=== PATIENT | male | born 1955 | race Caucasian/White ===

== ENCOUNTER 2019-03-31 06:11 | Emergency (ER) | payer OTHER ==
[~2019-03-31] VITALS: Ht 175.3 cm; Wt 119.8 kg
[2019-03-31 06:25] VITALS: BP 200/100
--- NOTE | 2019-03-31 06:25 | NUR ---
PT TAKEN TO BED 8
--- NOTE | 2019-03-31 06:55 | NUR ---
PT ARRVIED TO ED C/O RIGHT LOWER BACK BACK X 4-5DAYS. RATES PAIN 8/10 AND DESCRIBES IT A STABBING FEELING. DENIES ANY INJURY OR TURAMA OR FALLS. VSS SHOWS BP IS 200/109. NO OBVIOUS DEFORMITY NOTED ON PAIN LOCATION. NO SWELLING OR REDNESS NOTED ON RIGHT SIDE OF BACK. NKA. NO PMH.
--- NOTE | 2019-03-31 07:25 | NUR ---
Pt report given to jacey domingo. Transfer of care at this time. Addendum: 03/31/19 at 0801 by [facility] RECEIVED REPORT FROM JOSUÉ ZAMUDIO.
--- NOTE | 2019-03-31 07:38 | NUR ---
Dr. Price is evaluating the patient at bedside.
[2019-03-31] MEDS ORDERED: KETOROLAC 60 MG/2 ML VIAL IM ONE (07:40)
[2019-03-31 08:22] VITALS: BP 168/100
--- NOTE | 2019-03-31 08:22 | NUR ---
Patient discharged with BP 168/100, DENIES FOSS OR DIZZINESS AT THIS TIME, MD MADE AWARE. Written and verbal after care instructions given and explained. Patient alert, oriented and verbalized understanding of instructions. Ambulatory with steady gait. All questions addressed prior to discharge. ID band removed. Patient advised to follow up with PMD. Rx of MOTRIN given. Patient educated on indication of medication including possible reaction and side effects. Opportunity to ask questions provided and answered.
== END 2019-03-31 08:22 | disposition home or self-care (01) ==
LOC: MED 06:11
DX: M54.5 Low back pain (principal); F17.200 Nicotine dependence, unspecified, uncomplicated
CPT/HCPCS: 81002; 96372; 99283; J1885

== ENCOUNTER 2023-06-13 16:00 | Emergency (ER) | payer BC ==
[~2023-06-13] VITALS: Ht 175.3 cm; Wt 127.0 kg
[2023-06-13 16:09] VITALS: BP 152/92; PULSE 85; RESP 16; TEMP 98.4; O2SAT 96
[2023-06-13 17:45] LABS: EOSINOPHILS # (AUTO) 0.1 K/uL (0-0.4); HEMOGLOBIN 10.8 g/dL (12.0-18.0); LYMPHOCYTES # (AUTO) 2.2 K/uL (2.0-11.5); LYMPHOCYTES % (AUTO) 22.6 % (20.5-51.1); MEAN CORPUSCULAR HEMOGLOBIN 29 pg (27-31); MONOCYTES # (AUTO) 0.7 K/uL (0.8-1.0); MONOCYTES % (AUTO) 6.7 % (1.7-9.3); NEUTROPHILS # (AUTO) 6.7 K/uL (1.8-7.7); RED CELL DISTRIBUTION WIDTH 16.8 % (11.6-13.7); WHITE BLOOD COUNT (AUTO) 9.8 K/uL (4.8-10.8)
[2023-06-13 17:47] LABS: ANION GAP 8.8 (8-16); CALCIUM 8.4 mg/dL (8.5-10.1); CARBON DIOXIDE 31.5 mmol/L (21-32); POTASSIUM 3.3 mmol/L (3.5-5.1)
[2023-06-13 17:51] LABS: BASOPHILS # (AUTO) 0.1 K/uL (0.00-0.22); BASOPHILS % (AUTO) 0.8 % (0.0-2.0); EOSINOPHILS % (AUTO) 1.3 % (0.0-4.0); HEMATOCRIT 31.9 % (36-52); MEAN CORPUSCULAR HGB CONC 34 g/dL (33-37); MEAN CORPUSCULAR VOLUME 86.6 fL (80-94); NEUTROPHILS % (AUTO) 68.6 % (42.2-75.2); PLATELET COUNT (AUTO) 150 K/uL (140-450); RED BLOOD CELL COUNT(AUTO) 3.69 MIL/uL (4.20-6.10)
[2023-06-13 18:03] VITALS: O2SAT 96
[2023-06-13] MEDS ORDERED: POTA8TAB19 PO (18:19)
[2023-06-13] MEDS ORDERED: FURO-572 PO (18:19)
[2023-06-13] MEDS: POTASSIUM CHLORIDE 10 MEQ TABER PO ONE (18:31)
[2023-06-13 18:42] VITALS: BP 145/82; PULSE 80; RESP 15; TEMP 98; O2SAT 99
== END 2023-06-13 18:42 | disposition home or self-care (01) ==
LOC: MED 16:00
DX: R60.9 Edema, unspecified (principal); E87.6 Hypokalemia; I12.9 Hypertensive chronic kidney disease with stage 1 through stage 4 chronic kidney disease, or unspecified chronic kidney disease; E11.22 Type 2 diabetes mellitus with diabetic chronic kidney disease; N28.9 Disorder of kidney and ureter, unspecified; Z86.73 Personal history of transient ischemic attack (TIA), and cerebral infarction without residual deficits; Z79.4 Long term (current) use of insulin; Z79.899 Other long term (current) drug therapy
CPT/HCPCS: 36415; 71045; 80048; 83880; 84484; 85025; 93005; 99285

== ENCOUNTER 2023-07-16 14:40 | Emergency (ER) | payer BC ==
[~2023-07-16] VITALS: Ht 175.3 cm; Wt 145.1 kg
[~2023-07-16 14:40] MED LIST: FURO-572 PO; POTA8TAB19 PO
[2023-07-16 14:52] VITALS: BP 138/89; PULSE 79; RESP 18; TEMP 98.6; O2SAT 93
[2023-07-16 15:45] VITALS: PULSE 74; O2SAT 95
[2023-07-16 17:27] LABS: BASOPHILS # (AUTO) 0.1 K/uL (0.00-0.22); EOSINOPHILS # (AUTO) 0.1 K/uL (0-0.4); EOSINOPHILS % (AUTO) 1.7 % (0.0-4.0); HEMATOCRIT 32.5 % (36-52); HEMOGLOBIN 10.8 g/dL (12.0-18.0); LYMPHOCYTES # (AUTO) 2.1 K/uL (2.0-11.5); LYMPHOCYTES % (AUTO) 24.8 % (20.5-51.1); MEAN CORPUSCULAR HEMOGLOBIN 29 pg (27-31); MEAN CORPUSCULAR HGB CONC 33 g/dL (33-37); MEAN CORPUSCULAR VOLUME 88.3 fL (80-94); MONOCYTES # (AUTO) 0.5 K/uL (0.8-1.0); MONOCYTES % (AUTO) 5.7 % (1.7-9.3); NEUTROPHILS # (AUTO) 5.6 K/uL (1.8-7.7); NEUTROPHILS % (AUTO) 66.8 % (42.2-75.2); PLATELET COUNT (AUTO) 249 K/uL (140-450); RED BLOOD CELL COUNT(AUTO) 3.68 MIL/uL (4.20-6.10); RED CELL DISTRIBUTION WIDTH 16.6 % (11.6-13.7); WHITE BLOOD COUNT (AUTO) 8.4 K/uL (4.8-10.8)
[2023-07-16 17:41] LABS: ANION GAP 9.1 (8-16); CALCIUM 8.7 mg/dL (8.5-10.1); CARBON DIOXIDE 33.3 mmol/L (21-32); CREATININE 1.2 mg/dL (0.6-1.3); POTASSIUM 3.4 mmol/L (3.5-5.1)
[2023-07-16 17:49] LABS: ALANINE AMINOTRANSFERASE 9 U/L (12-78); ALBUMIN 3.1 g/dL (3.4-5.0); ALKALINE PHOSPHATASE 70 U/L (50-136); ASPARTATE AMINOTRANSFERASE 20 U/L (15-37); BILIRUBIN,DIRECT 0.1 mg/dL (0.0-0.3); PHOSPHORUS 3.3 mg/dL (2.5-4.9); TOTAL BILIRUBIN 0.3 mg/dL (0.0-1.0); TOTAL PROTEIN, SERUM 7.2 g/dL (6.4-8.2)
[2023-07-16] MEDS: FUROSEMIDE 40 MG/4 ML VIAL IVP ONE (17:55)
[2023-07-16] MEDS ORDERED: FURO-570 PO (17:56)
== END 2023-07-16 18:46 | disposition home or self-care (01) ==
LOC: MED 14:40
DX: R60.9 Edema, unspecified (principal); R22.43 Localized swelling, mass and lump, lower limb, bilateral; I13.10 Hypertensive heart and chronic kidney disease without heart failure, with stage 1 through stage 4 chronic kidney disease, or unspecified chronic kidney disease; E11.22 Type 2 diabetes mellitus with diabetic chronic kidney disease; N28.9 Disorder of kidney and ureter, unspecified; Z86.73 Personal history of transient ischemic attack (TIA), and cerebral infarction without residual deficits; Z79.4 Long term (current) use of insulin; Z79.899 Other long term (current) drug therapy
CPT/HCPCS: 36415; 71045; 80048; 80076; 83735; 83880; 84100; 84484; 85025; 93005; 96374; 99285; J1940